=== PATIENT | female | born 1960 | race African-American/Black ===

== ENCOUNTER 2018-10-06 18:13 | Emergency (ER) | payer OTHER ==
[~2018-10-06] VITALS: Ht 172.7 cm; Wt 67.1 kg
[2018-10-06 18:20] VITALS: BP 148/86
--- NOTE | 2018-10-06 18:20 | NUR ---
ED Nurse Note: Patient brought in to ER by ambulance from outside after syncope episode. pt aao x4 and ambulatory with FWW. skin clean and intact no visible wound or trauma noted. calm and cooperative. 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 pt reported that she lost her consciousness and two strangers witnessed and the told her that she was on the floor for 15 seconds. pt is unsured about head trauma. pt is in gown and on cardiac catheterization technologist. vss as documented. pt requested undressing jeans later due to ascite pain at this moment.
--- NOTE | 2018-10-06 18:36 | Emergency Room Report ---
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 Patient presents for evaluation via EMS Patient History Past Medical History: see triage record Last Menstrual Period: na Reviewed Nursing Documentation: PMH: Agreed; PSxH: Agreed Nursing Documentation-PMH Hx Asthma: Yes Review of Systems Constitutional: Denies: chills, fever Eye: Denies: blurred vision, double vision ENT: Denies: throat pain, nasal discharge Respiratory: Denies: cough, shortness of breath Cardiovascular: Reports: palpitations, syncope; Denies: chest pain Gastrointestinal: Reports: nausea; Denies: abdominal pain, diarrhea, vomiting Genitourinary: Denies: dysuria, pain Musculoskeletal: Denies: back pain, muscle pain Skin: Denies: rash, lesions Neurological: Reports: headache; Denies: focal weakness Hematologic/Lymphatic: Denies: easy bleeding, easy bruising All Other Systems: negative except mentioned in HPI Physical Exam Vital Signs Date Time Temp Pulse Resp B/P (MAP) Pulse Ox O2 Delivery O2 Flow Rate FiO2 10/06/18 18:06 98.4 62 20 148/86 (106) 100 Room Air Sp02 EP Interpretation: reviewed, normal General Appearance: well appearing, no apparent distress, alert Head: normocephalic, atraumatic Eyes: bilateral eye PERRL, bilateral eye EOMI ENT: uvula midline, moist mucus membranes Neck: supple, thyroid normal, supple/symm/no masses Respiratory: lungs clear, no respiratory distress, no retraction, no accessory muscle use Cardiovascular #1: normal peripheral pulses, regular rate, rhythm, no edema, no gallop, no murmur Gastrointestinal: non tender, soft, no guarding, no rebound Musculoskeletal: normal inspection Neurologic: alert, oriented x3 Psychiatric: anxious Skin: no rash, warm/dry Medical Decision Making Diagnostic Impression: Primary Impression: Syncope ER Course 58-year-old female presents with syncope, concern for cardiac arrhythmia, versus vasovagal, versus intracranial process, patient has a history of vasovagal syncope, 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, patient refused CT brain, is aware of the risks and benefits, Patient feels back to baseline, most likely a vasovagal episode, chest x-ray is negative, labs are negative, disposition home with return precautions Laboratory Tests Test 10/06/18 19:00 10/06/18 19:05 White Blood Count 4.0 K/UL (4.8-10.8) L Red Blood Count 4.06 M/UL (4.20-5.40) L Hemoglobin 12.5 G/DL (12.0-16.0) Hematocrit 36.8 % (37.0-47.0) L Mean Corpuscular Volume 91 FL (80-99) Mean Corpuscular Hemoglobin 30.9 PG (27.0-31.0) Mean Corpuscular Hemoglobin Concent 34.1 G/DL (32.0-36.0) Red Cell Distribution Width 11.4 % (11.6-14.8) L Platelet Count 227 K/UL (150-450) Mean Platelet Volume 6.4 FL (6.5-10.1) L Neutrophils (%) (Auto) 50.8 % (45.0-75.0) Lymphocytes (%) (Auto) 40.6 % (20.0-45.0) Monocytes (%) (Auto) 5.5 % (1.0-10.0) Eosinophils (%) (Auto) 0.7 % (0.0-3.0) Basophils (%) (Auto) 2.4 % (0.0-2.0) H Prothrombin Time 11.4 SEC (9.30-11.50) Prothrombin Time INR 1.1 (0.9-1.1) PTT 26 SEC (23-33) Sodium Level 142 MMOL/L (136-145) Potassium Level 3.8 MMOL/L (3.5-5.1) Chloride Level 106 MMOL/L (98-107) Carbon Dioxide Level 27 MMOL/L (21-32) Anion Gap 9 mmol/L (5-15) Blood Urea Nitrogen 12 mg/dL (7-18) Creatinine 0.7 MG/DL (0.55-1.30) Estimate Glomerular Filtration Rate > 60 mL/min (>60) Glucose Level 89 MG/DL (74-106) Calcium Level 9.2 MG/DL (8.5-10.1) Total Bilirubin 0.5 MG/DL (0.2-1.0) Aspartate Amino Transferase (AST) 14 U/L (15-37) L Alanine Aminotransferase (ALT) 14 U/L (12-78) Alkaline Phosphatase 135 U/L (46-116) H Total Creatine Kinase 56 U/L (26-308) Creatine Kinase MB 0.5 NG/ML (0.0-3.6) Creatine Kinase MB Relative Index 0.8 Troponin I 0.000 ng/mL (0.000-0.056) Pro-B-Type Natriuretic Peptide 19 pg/mL (0-125) Total Protein 7.3 G/DL (6.4-8.2) Albumin 3.8 G/DL (3.4-5.0) Globulin 3.5 g/dL Albumin/Globulin Ratio 1.1 (1.0-2.7) Lipase 140 U/L (73-393) Thyroid Stimulating Hormone (TSH) 0.979 uiU/mL (0.358-3.740) Free Thyroxine 1.22 NG/DL (0.76-1.46) Urine Color Pale yellow Urine Appearance Clear Urine pH 8 (4.5-8.0) Urine Specific [place] 1.010 (1.005-1.035) Urine Protein Negative (NEGATIVE) Urine Glucose (UA) Negative (NEGATIVE) Urine Ketones Negative (NEGATIVE) Urine Blood Negative (NEGATIVE) Urine Nitrite Negative (NEGATIVE) Urine Bilirubin Negative (NEGATIVE) Urine Urobilinogen Normal MG/DL (0.0-1.0) Urine Leukocyte Esterase Negative (NEGATIVE) EKG Diagnostic Results EKG Time: 18:47 EP Interpretation: Bradycardia, rate 57, QTc 416, no acute ST elevations, normal axis Rate: bradycardiac Rhythm: other - Sinus ST Segments: no acute changes Rhythm Strip Diag. Results Rhythm Strip Time: 18:34 EP Interpretation: yes Rate: 61 Rhythm: NSR, no PVC's, no ectopy Chest X-Ray Diagnostic Results Chest X-Ray Diagnostic Results : Chest X-Ray Ordered: Yes # of Views/Limited/Complete: 1 View Indication: Other - Syncope EP Interpretation: Yes Interpretation: no consolidation, no effusion, no pneumothorax, no acute cardiopulmonary disease Impression: No acute disease Electronically Signed by: Florentino Frederick MD Last Vital Signs Date Time Temp Pulse Resp B/P (MAP) Pulse Ox O2 Delivery O2 Flow Rate FiO2 10/06/18 18:20 98.4 81 20 148/86 100 Room Air Disposition: HOME, SELF-CARE Condition: Improved Referrals: [facility] Patient Instructions: Syncope Additional Instructions: The patient was provided with discharge instructions, notified to follow-up with a primary care doctor and or specialist in the next 24-48 hours, and to return to the ED if they have worsening of their symptoms. Please note that this report is being documented using [employer] technology. This can lead to erroneous entry secondary to incorrect interpretation by the dictating instrument. Florentino Frederick M.D. Oct 06, 2018 18:36
--- NOTE | 2018-10-06 19:01 | NUR ---
ED Nurse Note: pt refused CT due to h/x of to many CT whenever she had syncope episodes. ERMD made aware. traffic technician has been informed
--- NOTE | 2018-10-06 19:02 | NUR ---
HAND-OFF: Report given to MARICARMEN Nelson. Urine needs to be collected.
[2018-10-06 19:33] LABS: BASOPHILS % (AUTO) 2.4 % (0.0-2.0); EOSINOPHILS % (AUTO) 0.7 % (0.0-3.0); HEMATOCRIT 36.8 % (37.0-47.0); HEMOGLOBIN 12.5 G/DL (12.0-16.0); LYMPHOCYTES % (AUTO) 40.6 % (20.0-45.0); MEAN CORPUSCULAR VOLUME 91 FL (80-99); MONOCYTES % (AUTO) 5.5 % (1.0-10.0); NEUTROPHILS % (AUTO) 50.8 % (45.0-75.0); PLATELET COUNT 227 K/UL (150-450); RED BLOOD COUNT 4.06 M/UL (4.20-5.40); RED CELL DISTRIBUTION WIDTH 11.4 % (11.6-14.8)
[2018-10-06 19:35] LABS: APPEARANCE,URINE CLEAR; BILIRUBIN, URINE NEGATIVE (NEGATIVE); COLOR,URINE PALE YELLOW; GLUCOSE, URINE (UA) NEGATIVE (NEGATIVE); KETONES,URINE NEGATIVE (NEGATIVE); LEUKOCYTE ESTERASE ,URINE NEGATIVE (NEGATIVE); NITRITE,URINE NEGATIVE (NEGATIVE); PH,URINE 8 (4.5-8.0); PROTEIN,URINE NEGATIVE (NEGATIVE); UROBILINOGEN,URINE NORMAL MG/DL (0.0-1.0)
[2018-10-06 19:41] LABS: INR 1.1 (0.9-1.1)
[2018-10-06 19:54] LABS: ANION GAP 9 mmol/L (5-15); BLOOD UREA NITROGEN 12 mg/dL (7-18); CALCIUM 9.2 MG/DL (8.5-10.1); CARBON DIOXIDE 27 MMOL/L (21-32); CHLORIDE 106 MMOL/L (98-107); CREATININE 0.7 MG/DL (0.55-1.30); POTASSIUM 3.8 MMOL/L (3.5-5.1); SODIUM 142 MMOL/L (136-145)
[2018-10-06 20:02] LABS: ALANINE AMINOTRANSFERASE 14 U/L (12-78); ALBUMIN 3.8 G/DL (3.4-5.0); ALBUMIN/GLOBULIN RATIO 1.1 (1.0-2.7); ALKALINE PHOSPHATASE 135 U/L (46-116); ASPARTATE AMINO TRANSFERASE 14 U/L (15-37); BILIRUBIN,TOTAL 0.5 MG/DL (0.2-1.0); CKMB 0.5 NG/ML (0.0-3.6); CREATINE KINASE 56 U/L (26-308)
[2018-10-06 20:54] VITALS: BP 135/75
--- NOTE | 2018-10-06 20:54 | NUR ---
ED Nurse Note: pt cleared to be d/c per ERMD, pt discharge and aftercare instruction provided, pt advised to follow up with pcp or return to ed if changes in condition, pt education done via discussion and handout, pt vss, ambulatory w/ steady gait, iv d/c and id band removed.
--- NOTE | 2018-10-07 10:19 | Diagnostic Imaging Report ---
Indication: Chest pain Technique: One view of the chest Comparison: none Findings: Lungs and pleural spaces are clear. Heart size is normal Impression: No acute process This agrees with the preliminary interpretation provided by the emergency room physician
== END 2018-10-06 20:54 | disposition home or self-care (01) ==
LOC: EDBD 18:13 → EMR 20:15
DX: R55 Syncope and collapse (principal)
CPT/HCPCS: 36415; 71045; 80053; 81003; 82550; 82553; 83690; 83880; 84439; 84443; 84484; 85025; 85610; 85730; 93005; 99284